=== PATIENT | male | born 1935 | race Caucasian/White ===

== ENCOUNTER 2018-12-25 14:22 | Inpatient (IN) | payer MEDICARE ==
--- NOTE | 2018-12-25 15:39 | RAD ---
LEFT SHOULDER RADIOGRAPHS THREE VIEWS: 12/25/18 PROVIDED CLINICAL HISTORY: Left shoulder pain. FINDINGS: No comparisons. Postoperative changes of left shoulder arthroplasty are demonstrated. There is no evidence for hardwa re loosening or migration involving the humeral component. There is no evidence for fracture. Glenoh umeral relationship appears normal. The humeral component articular surface articulates with the cran ial aspects of the glenoid and predominantly is apposed to the acromion. Narrowing of the subacromial space. Visualized left lung field appears clear. IMPRESSION: No evidence for acute osseous abnormality. POS: C
--- NOTE | 2018-12-25 15:47 | RAD ---
LEFT KNEE RADIOGRAPHS 4 VIEWS: DATE: 12/25/2018. PROVIDED CLINICAL HISTORY: Left knee pain. FINDINGS: No evidence for a fracture or other acute osseous abnormality. Alignment appears anatomic. Medial and lateral femorotibial joint space narrowing with chondrocalcin osis. Vascular calcifications are seen. No definite evidence for knee joint capsular distention wit h limitations due to the oblique lateral view. IMPRESSION: Degenerative changes and chondrocalcinosis without evidence for an acute osseous abnormality. POS: C
[2018-12-25 16:08] LABS: Anion Gap 11 mmol/L (10-20); BUN (Urea Nitrogen) 31 mg/dL (8.4-25.7); Calc. Creatinine Clearance 0 mL/min (70-130); Calcium 9.4 mg/dL (7.8-10.44); Carbon Dioxide 24 mmol/L (23-31); Chloride 96 mmol/L (98-107); Estimated GFR-MDRD 31; Glucose 113 mg/dL (83-110); Potassium 4.2 mmol/L (3.5-5.1); Sodium 127 mmol/L (136-145); Uric Acid 5.2 mg/dL (3.5-7.2)
[2018-12-25 16:10] LABS: Hemoglobin 9.2 g/dL (14.0-18.0); Mean Corpuscular HGB CONC 30.9 g/dL (32.0-36.0); Mean Corpuscular Hemoglobin 24.1 pg (27.0-31.0); Mean Platelet Volume 8.4 fL (7.4-10.4); Platelet Count 96 thou/uL (130-400); RBC Distribution Width 17.5 % (11.5-14.5); Red Blood Cell (RBC) Count 3.82 mill/uL (4.70-6.10); White Blood Cell (WBC) Count 9.3 thou/uL (4.8-10.8)
[2018-12-25 16:20] LABS: #Lymphocytes 0.5 thou/uL (1.20-3.40); #Monocytes 1.3 thou/uL (0.11-0.59); #Neutrophils 7.5 thou/uL (1.40-6.50); %Basophils 0.5 % (0.0-1.0); %Eosinophils 0.1 % (0.0-10.0); %Lymphocytes 5.7 % (21.0-51.0); %Monocytes 13.4 % (0.0-10.0); %Neutrophils 80.3 % (42.0-75.0)
[2018-12-25] MEDS ORDERED: predniSONE 20 MG TAB ONE (17:00)
[2018-12-25] MEDS ORDERED: Morphine 4 MG/ML VIAL ONE (17:01)
[2018-12-25 18:17] VITALS: BMI 24.0
[2018-12-25] MEDS ORDERED: Albuterol Sulfate 2.5 mg/3 ml Neb NEB PRN (19:05)
[2018-12-25] MEDS ORDERED: Bisacodyl 5 MG TAB PO PRN (19:07)
[2018-12-25] MEDS ORDERED: Ondansetron ODT 4 MG TAB PO PRN (19:07)
[2018-12-25] MEDS ORDERED: Senokot S 8.6-50 MG TAB PO PRN (19:07)
[2018-12-25] MEDS ORDERED: traMADol HCl 50 MG TAB PO SCH ×3 (20:15→23:59)
[2018-12-25] MEDS: Famotidine 20 MG TAB PO SCH (20:30)
[2018-12-25] MEDS: Tamsulosin HCl 0.4 MG CAP PO SCH (20:30)
[2018-12-25] MEDS ORDERED: traMADol HCl 50 MG TAB ONE (20:50)
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
[2018-12-26] MEDS ORDERED: traMADol HCl 50 MG TAB ONE ×4 (05:24→23:53)
[2018-12-26] MEDS: Levothyroxine Sodium 100 MCG TAB PO SCH (05:27)
[2018-12-26] MEDS: traMADol HCl 50 MG TAB PO SCH ×3 (05:27→17:18)
[2018-12-26 05:38] LABS: ALT (SGPT) 14 U/L (8-55); AST (SGOT) 21 U/L (5-34); Albumin 2.9 g/dL (3.4-4.8); Alkaline Phosphatase 57 U/L (40-150); Anion Gap 13 mmol/L (10-20); BUN (Urea Nitrogen) 31 mg/dL (8.4-25.7); Bilirubin, Total 0.5 mg/dL (0.2-1.2); Calc. Creatinine Clearance 31 mL/min (70-130); Calcium 9.1 mg/dL (7.8-10.44); Carbon Dioxide 22 mmol/L (23-31); Chloride 96 mmol/L (98-107); Estimated GFR-MDRD 34; Globulin 3.4 g/dL (2.4-3.5); Glucose 152 mg/dL (83-110); Potassium 3.7 mmol/L (3.5-5.1); Protein, Total 6.3 g/dL (5.8-8.1); Sodium 127 mmol/L (136-145)
[2018-12-26 06:00] LABS: #Lymphocytes 0.4 thou/uL (1.20-3.40); #Monocytes 0.5 thou/uL (0.11-0.59); #Neutrophils 6.5 thou/uL (1.40-6.50); %Basophils 0.3 % (0.0-1.0); %Lymphocytes 4.8 % (21.0-51.0); %Monocytes 7.3 % (0.0-10.0); %Neutrophils 87.6 % (42.0-75.0); Anisocytosis SLIGHT = 6-15 cells (100X) (0-5/hpf); Hemoglobin 8.5 g/dL (14.0-18.0); Hypochromia SLIGHT = 6-15 cells (100X) (0-5/hpf); MDiff Complete? YES; Mean Corpuscular HGB CONC 30.9 g/dL (32.0-36.0); Mean Corpuscular Hemoglobin 24.1 pg (27.0-31.0); Mean Corpuscular Volume 77.8 fL (78.0-98.0); Mean Platelet Volume 10.6 fL (7.4-10.4); Microcytosis SLIGHT = 6-15 cells (100X) (0-5/hpf); Platelet Count 100 thou/uL (130-400); Platelet Morphology Comment Appears Decreased; RBC Distribution Width 17.4 % (11.5-14.5); Red Blood Cell (RBC) Count 3.53 mill/uL (4.70-6.10); White Blood Cell (WBC) Count 7.4 thou/uL (4.8-10.8)
[2018-12-26] MEDS ORDERED: traMADol HCl 50 MG TAB PO SCH (06:00)
[2018-12-26] MEDS: Furosemide 40 MG TAB PO SCH (08:50)
[2018-12-26] MEDS: Ferrous Sulfate 325 MG TAB PO SCH ×2 (08:50→17:17)
[2018-12-26] MEDS: Atorvastatin Calcium 20 MG TAB PO SCH (08:50)
[2018-12-26] MEDS: Polyethylene Glycol 3350 17 GM Packet PO SCH (08:51)
[2018-12-26] MEDS: Finasteride 5 MG TAB PO SCH (08:51)
[2018-12-26] MEDS ORDERED: predniSONE 20 MG TAB PO SCH (09:00)
[2018-12-26] MEDS: Tamsulosin HCl 0.4 MG CAP PO SCH (21:06)
[2018-12-26] MEDS: Famotidine 20 MG TAB PO SCH (21:06)
[2018-12-27] MEDS: traMADol HCl 50 MG TAB PO SCH ×5 (00:01→18:48)
[2018-12-27] MEDS ORDERED: traMADol HCl 50 MG TAB ONE ×3 (06:13→17:08)
[2018-12-27] MEDS: Levothyroxine Sodium 100 MCG TAB PO SCH (06:17)
[2018-12-27] MEDS: Atorvastatin Calcium 20 MG TAB PO SCH (08:23)
[2018-12-27] MEDS: Furosemide 40 MG TAB PO SCH (08:23)
[2018-12-27] MEDS: Ferrous Sulfate 325 MG TAB PO SCH ×2 (08:23→17:42)
[2018-12-27] MEDS: Colchicine 0.6 MG TAB PO SCH ×2 (08:24→20:22)
[2018-12-27] MEDS: Finasteride 5 MG TAB PO SCH (08:25)
[2018-12-27] MEDS: Polyethylene Glycol 3350 17 GM Packet PO SCH (08:30)
[2018-12-27] MEDS: traMADol HCl 50 MG TAB PO PRN (19:09)
[2018-12-27] MEDS: Tamsulosin HCl 0.4 MG CAP PO SCH (20:22)
[2018-12-27] MEDS: Famotidine 20 MG TAB PO SCH (20:22)
[2018-12-28] MEDS: traMADol HCl 50 MG TAB PO SCH ×5 (01:01→23:59)
[2018-12-28] MEDS: Levothyroxine Sodium 100 MCG TAB PO SCH (06:13)
[2018-12-28 07:10] LABS: Bilirubin Negative (Negative); Blood, Urine Negative (Negative); Clarity Clear (Clear); Glucose, Urine (Dipstick) Negative (Negative); Leukocyte Negative (Negative); Nitrite Negative (Negative); Protein, Urine (Dipstick) 30 mg/dL (Neg-Trace); Specific Gravity, Urine 1.015 (1.005-1.030); pH, Urine 5.5 (5.0-9.0)
[2018-12-28 07:12] LABS: Bacteria/HPF None Seen HPF (None Seen); RBC/HPF None Seen HPF (0-3); Squamous Epithelial 0-3 HPF (0-3); Urine Culture Reflex No No; WBC/HPF None Seen HPF (0-3)
[2018-12-28] MEDS: Atorvastatin Calcium 20 MG TAB PO SCH (08:05)
[2018-12-28] MEDS: Colchicine 0.6 MG TAB PO SCH ×2 (08:05→20:31)
[2018-12-28] MEDS: Furosemide 40 MG TAB PO SCH (08:06)
[2018-12-28] MEDS: Ferrous Sulfate 325 MG TAB PO SCH ×2 (08:06→17:46)
[2018-12-28] MEDS: Finasteride 5 MG TAB PO SCH (08:06)
[2018-12-28] MEDS: Polyethylene Glycol 3350 17 GM Packet PO SCH (08:09)
--- NOTE | 2018-12-28 10:11 | PRG ---
DATE OF SERVICE: 12/27/2018 SUBJECTIVE: The patient feels somewhat better with no pain at rest, but still is requiring significant 2-person assist to ambulate to the bathroom because of pain in his hips, shoulders, and knee. Denying any shortness of breath or chest pain. He has no nausea, vomiting, or abdominal pain. OBJECTIVE: VITAL SIGNS: Show his blood pressure is 117/67, temperature is 98, pulse 69, respirations 19, and O2 saturations 99% on room air. LUNGS: Clear. CARDIAC: Shows a regular rhythm. ABDOMEN: Soft and nontender. SKIN AND EXTREMITIES: Display severe tenderness to palpation with any movement of the right shoulder. Left knee shows decreased tenderness, but both hips show tenderness to palpation. NEUROLOGIC: Shows no focal findings. ASSESSMENT: 1. Exquisite pain in right shoulder and hips, unknown etiology with no response to classical gout treatment with steroids and colchicine. 2. Atrial fibrillation, rate controlled. 3. Aortic stenosis. 4. Benign prostatic hypertrophy with lower tract obstructive symptoms with increasing nocturia. PLAN: 1. Consider steroid injection. 2. Obtain x-rays of right shoulder and pelvis. 3. Obtain sedimentation rate, lactic acid, CRP. 4. Monitor for urinary retention. Job ID: [id number]
--- NOTE | 2018-12-28 10:49 | RAD ---
EXAM: 3 views of the right shoulder HISTORY: Shoulder pain COMPARISON: None FINDINGS: There is no evidence of acute fracture or dislocation. The patient is status post right meagan ulder arthroplasty with a high riding prosthesis. No perihardware lucency is seen. The visualized thorax shows a fracture of the lateral third rib. IMPRESSION: 1. Status post right shoulder arthroplasty without evidence of acute shoulder abnormality. 2. Right third rib fracture
--- NOTE | 2018-12-28 11:03 | RAD ---
Exam: Single view of the pelvis HISTORY: Right hip pain COMPARISON: None FINDINGS: A single view the pelvis shows no evidence of acute fracture or dislocation. Mild degenerat racheal changes seen in both hips. Shrapnel is seen in the right hip soft tissues. Vascular calcifications are seen. IMPRESSION: No evidence of acute osseous abnormality.
--- NOTE | 2018-12-28 11:04 | RAD ---
Exam: 3 views of the lumbosacral spine HISTORY: Low back pain COMPARISON: None FINDINGS: 3 views of the lumbosacral spine were performed. There is wedge compression deformity of L3 vertebral body with approximately 50% height loss. This appears chronic. The intervertebral discs are narrowed throughout the lumbar spine with moderate surrounding osteophytes. No significant sublux ation is seen of the vertebral bodies. Posterior facet arthrosis is seen in the lower lumbosacral spine. Vascular calcic lesions are seen in the aorta. The sacroiliac joints are unremarkable. IMPRESSION: Severe degenerative changes of the lumbar spine without acute osseous abnormality.
[2018-12-28 11:09] LABS: Anion Gap 15 mmol/L (10-20); BUN (Urea Nitrogen) 38 mg/dL (8.4-25.7); CRP (Inflammatory) 26.66 mg/dL (= or < 0.5); Calc. Creatinine Clearance 29 mL/min (70-130); Calcium 9.2 mg/dL (7.8-10.44); Carbon Dioxide 22 mmol/L (23-31); Chloride 94 mmol/L (98-107); Estimated GFR-MDRD 32; Glucose 170 mg/dL (83-110); Potassium 4.1 mmol/L (3.5-5.1); Sodium 127 mmol/L (136-145)
[2018-12-28] MEDS: Famotidine 20 MG TAB PO SCH (20:31)
[2018-12-28] MEDS: Tamsulosin HCl 0.4 MG CAP PO SCH (20:31)
--- NOTE | 2018-12-28 21:49 | PRG ---
DATE OF SERVICE: 12/28/2018 SUBJECTIVE: The patient lying in the bed. States he feels well at rest, but is still having significant pain on any movement of his shoulder and on ambulation to the bathroom. He is having no shortness of breath or chest pain. OBJECTIVE: VITAL SIGNS: Show his blood pressure is stable at 123/67, temperature 98, pulse 87, respirations 19, O2 sats 94% on room air. LUNGS: Clear. CARDIAC EXAMINATION: Shows regular rhythm. ABDOMEN: Soft and nontender. SKIN/EXTREMITIES: Shows no specific swelling, erythema, warmth, but significant tenderness on palpation. LABORATORY DATA: Shows sodium stable at 127, potassium 4.1, chloride 94, bicarb 22, BUN is slightly increased at 38 with a stable creatinine at 2.0 and GFR of 32. Sedimentation rate is not significantly elevated at 37, but CRP significantly elevated at 26.6. Prostate specific antigen is normal at 0.04. Shoulder x-ray shows only stable right shoulder arthroplasty. Lumbar spine x-ray shows severe degenerative changes without any acute abnormality with a chronic compression fracture of L3. Pelvic x-ray shows no evidence of acute abnormality. Degenerative changes mild in both hips. ASSESSMENT: Significant degenerative joint disease and possible gouty arthritis with elevated CRP, but with no response to steroids, colchicine. PLAN: Obtain uric acid in the a.m. Obtain MONA in a.m. Continue prednisone and colchicine and possibly refer to supervisor hand silvering this week. Job ID: [id number]
[2018-12-29] MEDS: traMADol HCl 50 MG TAB PO SCH ×3 (05:57→17:43)
[2018-12-29] MEDS: Levothyroxine Sodium 100 MCG TAB PO SCH (05:58)
[2018-12-29] MEDS: Furosemide 40 MG TAB PO SCH (08:45)
[2018-12-29] MEDS: Colchicine 0.6 MG TAB PO SCH ×2 (08:45→20:34)
[2018-12-29] MEDS: Atorvastatin Calcium 20 MG TAB PO SCH (08:46)
[2018-12-29] MEDS: Ferrous Sulfate 325 MG TAB PO SCH ×2 (08:46→17:43)
[2018-12-29] MEDS: Finasteride 5 MG TAB PO SCH (08:47)
[2018-12-29] MEDS: Polyethylene Glycol 3350 17 GM Packet PO SCH (12:05)
--- NOTE | 2018-12-29 19:25 | PRG ---
DATE OF SERVICE: 12/26/[address] Tomas Pollard. SUBJECTIVE: The patient was admitted by Dr. Pollard for acute arthralgias, severe pain with inability to maintain ADLs, secondary to acute gouty arthritis and started on prednisone, and states that he feels better today, but is still having significant pain. OBJECTIVE: VITAL SIGNS: Show his temperature 97.9, pulse 70, respirations 20, O2 sats 99% on room air, and blood pressure 127/64. MUSCULOSKELETAL: Shows minimal swelling, but significant tenderness and left knee and right shoulder. Tenderness on rotation and abduction of both hips. LUNGS: Clear. CARDIAC: Regular rhythm. LABORATORY DATA: Laboratory shows sodium 127, potassium 3.7, chloride 96, bicarb 22, BUN 31, and creatinine 1.91. White count 7400, hematocrit 27, and hemoglobin 8.5. ASSESSMENT: 1. Acute exacerbation of gouty arthritis, on prednisone with minimal relief. We will start on colchicine 0.6 twice daily. 2. Chronic kidney disease, stage 3, stable. 3. Chronic anemia, stable. 4. Atrial fibrillation with rate controlled, but no anticoagulation because of recurrent falls. PLAN: Colchicine 0.6 mg twice daily. Continue prednisone. Continue PT and OT. Continue to monitor atrial fibrillation for RVR. Job ID: [id number]
--- NOTE | 2018-12-29 19:29 | PRG ---
DATE OF SERVICE: 12/29/2018 SUBJECTIVE: The patient lying in bed, sleepy and lethargic. He has been receiving tramadol routinely every 6 hours. He apparently has not been doing his ADLs, but did work with therapy today. He is still complaining of diffuse pain. OBJECTIVE: VITAL SIGNS: Temperature of 97.6 pulse 96, respirations 20, O2 sats 93% on room air, blood pressure 139/72. LUNGS: Clear. CARDIAC: Showed regular rhythm. ABDOMEN: Soft and nontender. SKIN: Extremities show crepitus and stiffness in shoulders, knees and hips but with no swelling, erythema or warmth. LABORATORY DATA: MONA panel is pending. Uric acid returned today normal at 5.4. ASSESSMENT: Persistent diffuse pain of unknown etiology in a patient with elevated CRP but normal uric acid and normal sedimentation rate with x-ray showing diffuse degenerative disease. 1. Chronic kidney disease stage 3 stable. 2. Aortic stenosis, stable. 3. Atrial fibrillation, rate controlled. 4. Benign prostatic hypertrophy, lower tract obstructive symptoms, stable. PLAN: 1. Change tramadol to p.r.n. as it appears to be sedating the patient. 2. Discussed possible rheumatology evaluation with Dr. Pollard. 3. Continue physical therapy. Job ID: [id number]
[2018-12-29] MEDS: Famotidine 20 MG TAB PO SCH (20:34)
[2018-12-29] MEDS: Tamsulosin HCl 0.4 MG CAP PO SCH (20:34)
[2018-12-30] MEDS: Levothyroxine Sodium 100 MCG TAB PO SCH (05:56)
[2018-12-30] MEDS: traMADol HCl 50 MG TAB PO PRN (08:22)
[2018-12-30] MEDS: Atorvastatin Calcium 20 MG TAB PO SCH (08:22)
[2018-12-30] MEDS: Colchicine 0.6 MG TAB PO SCH (08:22)
[2018-12-30] MEDS: Furosemide 40 MG TAB PO SCH (08:23)
[2018-12-30] MEDS: Polyethylene Glycol 3350 17 GM Packet PO SCH (08:23)
[2018-12-30] MEDS: Ferrous Sulfate 325 MG TAB PO SCH (08:23)
[2018-12-30] MEDS: Finasteride 5 MG TAB PO SCH (08:23)
[2018-12-30 10:51] VITALS: BP 121/67; TEMP 98.6
--- NOTE | 2018-12-31 04:56 | PRG ---
DISCHARGE SUMMARY DATE OF SERVICE: 12/30/18 SUBJECTIVE: Mr. Rader is a very pleasant 83-year-old white male, who presented to the ER with excruciating left knee and left shoulder pain. Brought to the emergency room said this pain has been going on for several days. It got so bad that he absolutely cannot stand and called the ambulance, because he could not move because of the pain. He was seen in the emergency room, found to have excruciating pain , admitted for pain management. Start to have gout as his pain stimulator. The patient was admitted, seen by me, and then followed by Dr. Tabor. Unfortunately, his pain has not gotten a whole lot better. We tried pain medications and colchicine and steroids. Dr. Tabor did run a sedimentation rate which was 37 and a C-reactive protein which was 26.66. Made recommendation to possibly see industrial organization manager. It is felt that the patient still has significant pain problems and extreme weakness. He walked on a short distance today because of the pain. It is felt that he would still benefit from admission to swing bed, where he would continue to get physical therapy and be seen by Urology since now he has urinary retention and by possible industrial organization manager or pain management doctor. He is admitted at this time to the swing bed for continued care. OBJECTIVE: VITAL SIGNS: Reveal blood pressure of 118/56, pulse 93, respirations 18, O2 saturation 96% on room air, and T-max 98.7. GENERAL: This is a well-developed, well-nourished, very pleasant white male, who has significant pain. HEENT: Reveals normocephalic and nontraumatic cranium. Pupils are equal, round , and reactive. Extraocular movements are intact. Nose and throat are slightly dry. NECK: Supple without masses, nodes, or bruits. CHEST: Clear to auscultation. No rales, rhonchi, wheezes are heard. HEART: Reveals a regular rate and rhythm without murmurs, gallops, or rubs. The patient does have chronic atrial fib, but sounds fairly regular today. ABDOMEN: Soft, nontender without organomegaly. Normal bowel sounds are noted in all 4 quadrants. GENITOURINARY: Deferred. EXTREMITIES: Reveal no clubbing, cyanosis, or edema, just pain. The patient states he has had both his shoulders redone and he has quite a bit of pain in both arms and he can hardly walk. States he hurts a lot his left knee, exquisitely tender, but he is moving better. Yesterday, he did walk the quad once, which is about 200 feet, but today he is unable to walk because of increased pain. ASSESSMENT: 1. Significant upper and lower extremity excruciating pain. 2. Gout. 3. Recent hospitalization for iatrogenic bradycardia. 4. Aortic stenosis. 5. Diastolic dysfunction. 6. Chronic obstructive pulmonary disease. 7. Chronic atrial fibrillation. 8. Chronic kidney disease, stage 3. 9. Asymptomatic anemia. 10. Hypertension. 11. History of throat cancer. 12. Hepatitis C. 13. Benign prostatic hyperplasia. 14. Hyperlipidemia. 15. Chronic pain syndrome. 16. Right ulnar nerve radiculopathy. 17. Anemia. 18. Generalized weakness. PLAN: The patient has been discharged at this time from acute care. He will be transferred to swing bed. DISCHARGE MEDICATIONS: Include, 1. Albuterol sulfate 2.5 mg q.6 hours. 2. Atorvastatin 20 daily. 3. Ferrous sulfate 325 daily. 4. Finasteride 5 mg daily. 5. Lasix 40 mg daily. 6. Levothyroxine 100 mcg daily. 7. MiraLAX 17 g daily. 8. The patient is presently off prednisone. 9. Flomax 0.4 mg daily. 10. Tramadol 50 mg daily. Continue with these present medications. The patient will be admitted to swing bed at [facility]. We will continue physical therapy and occupational therapy and hopefully pain management. Job ID: [id number] MTDD
[2018-12-31 15:53] LABS: ANA Symphony (Qualitative) Negative (Negative); ANA Symphony (Quantitative) 0.2 Ratio (< 0.7 Negative); dsDNA IgG Antibody 2.3 IU/mL (<10 Negative)
--- NOTE | 2019-01-01 08:24 | PRG ---
DATE OF SERVICE: 12/28/2018 SUBJECTIVE: The patient is an 83-year-old white male, patient of Dr. Tomas Pollard, admitted on December 25, because of inability to maintain ADL secondary to severe diffuse pain. He has a history of gout as well as multiple medical problems including rheumatic fever; diastolic heart failure; atrial fibrillation; and chronic kidney disease, stage 3. He states now that he has decreased pain with morphine at rest, but is still having significant pain in his left shoulder and left knee despite being placed on prednisone therapy by Dr. Pollard for possible acute exacerbation of his gout. OBJECTIVE: VITAL SIGNS: Showed him to have temperature 98.1, pulse 94, respirations 16, O2 saturations 94% on room air, blood pressure is 113/59. EXTREMITIES: Left knee is significantly tender to palpation, as is his right shoulder, with no significant effusion or erythema. LUNGS: Clear. CARDIAC: Displays irregular rhythm. ABDOMEN: Soft and nontender. LABORATORY DATA: Show a white count of 7400, hematocrit 27, hemoglobin 8.5. Sodium is 127, potassium 3.7, chloride 96, bicarb 22, BUN 31, creatinine 1.9, glucose 152, albumin 2.9, AST 21, ALT 14. Urinalysis is within normal limits except for protein. ASSESSMENT: 1. Severe arthralgias of unknown etiology, being treated for gout with prednisone, and we will add colchicine. 2. Atrial fibrillation with possible aortic stenosis. We will continue on prehospitalization medications. 3. Chronic kidney disease, stage 3, appears to be stable. 4. Diastolic heart failure, asymptomatic. 5. BPH, on medications of tamsulosin and finasteride, that we will continue. Job ID: [id number]
== END 2018-12-30 10:06 | DRG 554 ==
LOC: NAV ERS 14:22 → NAV ACUTE 17:53
PROVIDERS: ADMIT Family Medicine; ATTEND Family Medicine
DX: M10.9 Gout, unspecified (principal); N13.8 Other obstructive and reflux uropathy; I35.0 Nonrheumatic aortic (valve) stenosis; J44.9 Chronic obstructive pulmonary disease, unspecified; I48.2 Chronic atrial fibrillation; N18.3 Chronic kidney disease, stage 3 (moderate); D64.9 Anemia, unspecified; I12.9 Hypertensive chronic kidney disease with stage 1 through stage 4 chronic kidney disease, or unspecified chronic kidney disease; B19.20 Unspecified viral hepatitis C without hepatic coma; E78.5 Hyperlipidemia, unspecified; G89.4 Chronic pain syndrome; N40.1 Benign prostatic hyperplasia with lower urinary tract symptoms; M54.10 Radiculopathy, site unspecified; R53.1 Weakness; M19.90 Unspecified osteoarthritis, unspecified site; Z96.612 Presence of left artificial shoulder joint; Z96.611 Presence of right artificial shoulder joint; Z85.89 Personal history of malignant neoplasm of other organs and systems; Z87.891 Personal history of nicotine dependence
CPT/HCPCS: 36415; 72100; 72170; 80048; 80053; 81001; 84153; 84550; 85025; 85652; 86038; 86140; 86225; 96374; A4353; J2270; J7512

== ENCOUNTER 2018-12-30 09:59 | Inpatient (IN) | payer MEDICARE ==
[2018-12-30 11:21] VITALS: BMI 23.7
[2018-12-30] MEDS ORDERED: Senokot S 8.6-50 MG TAB PO PRN (20:36)
[2018-12-30] MEDS ORDERED: Bisacodyl 5 MG TAB PO PRN (20:36)
[2018-12-30] MEDS ORDERED: Albuterol Sulfate 2.5 mg/3 ml Neb NEB PRN (20:36)
[2018-12-30] MEDS ORDERED: traMADol HCl 50 MG TAB PO PRN (20:36)
[2018-12-30] MEDS ORDERED: Ondansetron ODT 4 MG TAB PO PRN ×2 (20:36→20:37)
[2018-12-30] MEDS ORDERED: Acetaminophen 325 MG TAB PO PRN (20:37)
[2018-12-30] MEDS ORDERED: Famotidine 20 MG TAB PO SCH (21:00)
[2018-12-30] MEDS: Colchicine 0.6 MG TAB PO SCH (21:07)
[2018-12-30] MEDS: Tamsulosin HCl 0.4 MG CAP PO SCH (21:07)
[2018-12-30] MEDS: Famotidine 20 MG TAB PO SCH (21:07)
[2018-12-30] MEDS: Atorvastatin Calcium 20 MG TAB PO SCH (21:07)
[2018-12-31 05:29] LABS: ALT (SGPT) 19 U/L (8-55); AST (SGOT) 55 U/L (5-34); Albumin 2.3 g/dL (3.4-4.8); Alkaline Phosphatase 88 U/L (40-150); Anion Gap 14 mmol/L (10-20); BUN (Urea Nitrogen) 69 mg/dL (8.4-25.7); Bilirubin, Total 1.1 mg/dL (0.2-1.2); Calc. Creatinine Clearance 23 mL/min (70-130); Calcium 9.4 mg/dL (7.8-10.44); Carbon Dioxide 20 mmol/L (23-31); Chloride 97 mmol/L (98-107); Estimated GFR-MDRD 25; Globulin 3.7 g/dL (2.4-3.5); Glucose 92 mg/dL (83-110); Potassium 3.9 mmol/L (3.5-5.1); Sodium 127 mmol/L (136-145)
[2018-12-31 05:56] LABS: Hemoglobin 9.3 g/dL (14.0-18.0); Hypochromia MODERATE=16-30 cells (100X) (0-5/hpf); MDiff Complete? YES; Mean Corpuscular HGB CONC 31.2 g/dL (32.0-36.0); Mean Corpuscular Hemoglobin 23.9 pg (27.0-31.0); Mean Corpuscular Volume 76.5 fL (78.0-98.0); Mean Platelet Volume 7.3 fL (7.4-10.4); Microcytosis MODERATE=15-30 cells (100X) (0-5/hpf); Platelet Count 111 thou/uL (130-400); Platelet Morphology Comment Appears Decreased; RBC Distribution Width 18.4 % (11.5-14.5); Red Blood Cell (RBC) Count 3.89 mill/uL (4.70-6.10); Target Cells SLIGHT = 2-5 cells (100X) (0-1/hpf); White Blood Cell (WBC) Count 14.9 thou/uL (4.8-10.8)
[2018-12-31] MEDS ORDERED: Levothyroxine Sodium 100 MCG TAB PO SCH (06:00)
[2018-12-31] MEDS ORDERED: Prevnar 13-Val Conj/PF 0.5 ML SYRINGE IM ONE (09:00)
[2018-12-31] MEDS ORDERED: Furosemide 40 MG TAB PO SCH (09:00)
[2018-12-31] MEDS: Sodium Chloride 0.9% 500 ML IV SCH ×2 (09:00→10:42)
[2018-12-31] MEDS ORDERED: Finasteride 5 MG TAB PO SCH (09:00)
[2018-12-31] MEDS ORDERED: Polyethylene Glycol 3350 17 GM Packet PO SCH (09:00)
[2018-12-31] MEDS: Ferrous Sulfate 325 MG TAB PO SCH ×3 (09:05→17:07)
[2018-12-31] MEDS: Colchicine 0.6 MG TAB PO SCH ×2 (09:46→20:22)
[2018-12-31] MEDS: NS 0.9% w/ 20 MEQ KCL 1,000 ML IV SCH ×2 (10:41→20:21)
[2018-12-31] MEDS ORDERED: Hydrocortisone Sod Succ/PF 100 mg/2 ml Vial IVP SCH (10:45)
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
[2018-12-31 14:29] LABS: Bilirubin Negative (Negative); Blood, Urine Trace (Negative); Glucose, Urine (Dipstick) Negative (Negative); Leukocyte Moderate (Negative); Nitrite Negative (Negative); Protein, Urine (Dipstick) Trace mg/dL (Neg-Trace)
[2018-12-31 14:30] LABS: Clarity Hazy (Clear); Specific Gravity, Urine 1.015 (1.005-1.030)
[2018-12-31 14:31] LABS: Bacteria/HPF 4+ HPF (None Seen); Hyaline Casts/LPF 0-3 HYALINE CAST LPF (0-3 Hyaline); RBC/HPF 0-3 HPF (0-3); Squamous Epithelial 0-3 HPF (0-3)
[2018-12-31] MEDS ORDERED: cefTRIAXone\\ROCEPHIN 1 GM in Sodium Chloride 0.9% 100 ML IVPB SCH (18:00)
[2018-12-31] MEDS ORDERED: Furosemide 40 MG/4 ML VIAL ONE (19:27)
--- NOTE | 2018-12-31 19:34 | RAD ---
AP CHEST: 12/31/18 HISTORY: Chest congestion. COMPARISON: 12/18/18. Suboptimal exam. There is motion artifact. Patchy atelectasis and infiltrate in the left lung base. Cardiomegaly. Elevated right hemidiaphragm is stable. Question small effusions which appears unchange d. IMPRESSION: No acute change when compared to 12/18/18. POS: [facility]
[2018-12-31 19:46] VITALS: BP 101/55; TEMP 96.9
[2018-12-31] MEDS: Tamsulosin HCl 0.4 MG CAP PO SCH (20:20)
[2018-12-31] MEDS: Famotidine 20 MG TAB PO SCH (20:20)
[2018-12-31] MEDS: Atorvastatin Calcium 20 MG TAB PO SCH (20:21)
--- NOTE | 2019-01-01 08:25 | PRG ---
DATE OF SERVICE: 12/31/2018 ADDENDUM: Progress note is in addition to today's H and P. SUBJECTIVE: Mr. Rader is a very thin cachectic 83-year-old white male, who was admitted to the swing bed because of excruciating pain and extreme weakness. Over the past 12 hours, has become much more obtunded. His creatinine has gone from 2 to 2.4. We have given him some fluids. His white count is slightly elevated at 14,000. He was dry, but talkative. When I talked this morning, he did not want to be significantly resuscitated with CPR or intubation. He is a DNR. I did talk to both his daughter and his son who both expressed the interest that we fulfill his request for DNR. We did give him some fluids and some Rocephin IV for urinary tract infection and possible early pneumonia. We also gave some Solu-Medrol. He seems to have deteriorated worse this evening and his O2 sats were slightly decreased, down to 88% to 91% on 2 L. He also is less responsive and his respiratory rate has increased to 32. I did call into the son, Dev Rader, who has a POA. He did not answer his phone, so I left him a detailed message that his father was doing worse and he may succumb to this illness this evening with his multiple comorbidities. I did also call the daughter, Shelly, and she states she had been up here twice and she did not think he would make it through the night either. PHYSICAL EXAMINATION: VITAL SIGNS: Now reveal blood pressure 101/55, pulse 110, down to 90, respirations 28 to 38, O2 saturation 88% to 92% on 2 L. T-max 98.2 this afternoon and this morning was 100. GENERAL: This is a very cachectic, ill-looking, rapid respirating white male, with a dry tongue and only responds with a grunt when you say his name. HEENT: Nose and throat are very dry. NECK: Supple without masses, nodes, or bruits. CHEST: Reveals some coarse breath sounds, but no rales or no rhonchi are noted. HEART: Reveals rapid tachycardia, about 108 at this time. ABDOMEN: Scaphoid, soft, nontender without organomegaly. Ch catheter is in place with dark urine. EXTREMITIES: Reveal no clubbing or cyanosis, trace edema. ASSESSMENT: 1. Shortness of breath. 2. Urinary tract infection. 3. Possible early pneumonia. 4. Heart failure with preserved dysfunction. 5. Chronic obstructive pulmonary disease with acute exacerbation. 6. Atrial fibrillation. 7. Chronic kidney disease, stage 4. 8. Asymptomatic anemia. 9. Hypertension. 10. History of throat cancer. 11. Hepatitis C. 12. Benign prostatic hyperplasia. 13. Possible sepsis. PLAN: After talking with the son and the daughter, we will not change the patient's resuscitation status. He is a do not attempt resuscitation. We have given him some IV fluids and some IV antibiotics and IV steroids. We will continue to do supportive care, but no heroic care. PROGNOSIS: Prognosis is very poor. The patient may not make it through the night. I have notified both the son and the daughter. Job ID: [id number]
--- NOTE | 2019-01-02 01:04 | DIS ---
DATE OF ADMISSION: 12/30/2018 DATE OF DISCHARGE: 01/01/2019 DATE OF : 01/01/2019. HISTORY OF PRESENT ILLNESS: Mr. Rader was an 83-year-old white male, who was in acute bed at [facility] for excruciating left knee pain and shoulder pain. He was admitted for pain management. Over the weekend, he stopped eating , became very depressed and decided that he was tired of life. He basically refused to eat and drink. We did start some IV fluids, but he continued to deteriorate. He was checked out and found to have a very minimal urinary tract infection and started on Rocephin and IV steroids. He again continued to refuse to eat and drink and became significantly worse. I did call the son who is his medical power of ip technology transactions attorney and the daughter and told them of his poor condition and they reiterated that he was a do not attempt resuscitation. Approximately 3:13, the morning of 01/01/2019, the patient was found to be without respirations and palpable pulse. Charge nurse and chief transfer and pumphouse operator were notified. The supervising nurse came and found that the patient had absent heart rate and was pronounced by Rossana Pedro, the carbon paper coating supervisor. He was pronounced at 0321 hours. At 5:28, [facility]er [facility]. The patient's son and daughter were both notified by the nursing service. FINAL DIAGNOSES: 1. Respiratory, immediate. 2. Comorbidities, heart failure with diastolic dysfunction. 3. Chronic obstructive pulmonary disease. 4. Atrial fibrillation. 5. Chronic kidney disease stage 4. 6. Dehydration, refusing to eat and drink. 7. Malnutrition. 8. Asymptomatic anemia. 9. Hypertension. 10. History of throat cancer. 11. Hepatitis C. 12. BPH. 13. Atherosclerotic heart disease. 14. Rheumatic fever with subsequent heart murmur. 15. Anemia. 16. Depression. 17. Generalized weakness. Job ID: [id number] MTDD
== END 2019-01-01 05:28 | disposition expired | DRG 555 ==
LOC: NAV ACUTE 10:08
PROVIDERS: ADMIT Family Medicine; ATTEND Family Medicine
DX: M25.562 Pain in left knee (principal); J18.9 Pneumonia, unspecified organism; A41.9 Sepsis, unspecified organism; N39.0 Urinary tract infection, site not specified; I13.0 Hypertensive heart and chronic kidney disease with heart failure and stage 1 through stage 4 chronic kidney disease, or unspecified chronic kidney disease; I50.30 Unspecified diastolic (congestive) heart failure; N18.4 Chronic kidney disease, stage 4 (severe); E46 Unspecified protein-calorie malnutrition; J44.1 Chronic obstructive pulmonary disease with (acute) exacerbation; Z66 Do not resuscitate; M25.512 Pain in left shoulder; F32.9 Major depressive disorder, single episode, unspecified; R00.8 Other abnormalities of heart beat; E86.0 Dehydration; D64.9 Anemia, unspecified; N40.0 Benign prostatic hyperplasia without lower urinary tract symptoms; B19.20 Unspecified viral hepatitis C without hepatic coma; I25.10 Atherosclerotic heart disease of native coronary artery without angina pectoris; I00 Rheumatic fever without heart involvement; R01.1 Cardiac murmur, unspecified; M10.9 Gout, unspecified; I35.0 Nonrheumatic aortic (valve) stenosis; I48.2 Chronic atrial fibrillation; E78.5 Hyperlipidemia, unspecified; G89.4 Chronic pain syndrome; G56.21 Lesion of ulnar nerve, right upper limb; R53.81 Other malaise; Z96.612 Presence of left artificial shoulder joint; Z96.611 Presence of right artificial shoulder joint; Z85.89 Personal history of malignant neoplasm of other organs and systems; Z87.891 Personal history of nicotine dependence; Z79.899 Other long term (current) drug therapy; Z68.23 Body mass index [BMI] 23.0-23.9, adult
CPT/HCPCS: 36415; 71045; 80053; 81001; 85025; 87040; 87077; 87086; 87186; 90471; 90670; G0009; J0696; J1720; J1940; J3480; J3490